=== PATIENT | male | born 1935 | race Caucasian/White ===

== ENCOUNTER 2020-01-20 20:22 | Outpatient (REF) | payer MEDICARE, SELFPAY ==
[2020-01-20 19:12] LABS: HCT 37.9 % (40.0-50.0); HGB 12.2 g/dL (13.5-17.5); MCH 30.9 pg (27.0-33.0); MCHC 32.2 % (32.0-36.0); MCV 95.9 fL (80-95); MPV 10.1 fL (8.0-11.0); Platelet Count 226 10^3/uL (130-400); RBC 3.95 10^6/uL (4.36-5.78); RDW 12.8 % (11.8-14.1); RDW-SD 45.1 fL; WBC 7.77 10^3/uL (4.4-10.8)
[2020-01-20 19:31] LABS: ALT 27 U/L (16-63); Anion Gap 7.5 mmol/L (3-11); BUN 30 mg/dL (7-18); CO2 27.5 mmol/L (21.0-32.0); CREATININE 1.35 mg/dL (0.70-1.30); Calcium 8.8 mg/dL (8.5-10.1); Chloride 103 mmol/L (98-107); Estimated GFR 50.47 (mL/min/1.73m2); Glucose 100 mg/dL (74-106); Potassium 5.1 mmol/L (3.5-5.1); Sodium 138 mmol/L (136-145)
[2020-01-20 20:34] LABS: LDL CHOLESTEROL 57 mg/dL (<100)
== END 2020-01-20 20:42 ==
LOC: NCHCN 20:22
PROVIDERS: PCP Internal Medicine; Visit Provider Internal Medicine
DX: I48.0 Paroxysmal atrial fibrillation (principal); Z98.61 Coronary angioplasty status
CPT/HCPCS: 80048; 83721; 85027; 84460

== ENCOUNTER 2020-06-12 11:27 | Outpatient (REF) | payer MEDICARE, SELFPAY ==
[2020-06-14 11:08] LABS: COVID-19 RT-PCR Result Positive (Negative)
== END 2020-06-12 11:47 ==
LOC: NCHCN 11:27
PROVIDERS: PCP Internal Medicine; Visit Provider Internal Medicine
DX: Z20.828 Contact with and (suspected) exposure to other viral communicable diseases (principal); R05 Cough
CPT/HCPCS: U0003

== ENCOUNTER 2021-01-26 12:25 | Outpatient (REF) | payer MEDICARE, SELFPAY ==
[2021-01-26 19:39] LABS: HCT 38.7 % (40.0-50.0); HGB 12.4 g/dL (13.5-17.5); MCH 30.7 pg (27.0-33.0); MCV 95.8 fL (80-95); Platelet Count 246 10^3/uL (130-400); RBC 4.04 10^6/uL (4.36-5.78); RDW 12.7 % (11.8-14.1); RDW-SD 45.1 fL; WBC 10.04 10^3/uL (4.4-10.8)
[2021-01-26 19:54] LABS: ALT 48 U/L (16-63); AST 38 U/L (15-37); Albumin 3.2 g/dL (3.4-5.0); Alkaline Phosphatase 117 U/L (46-116); Anion Gap 5.4 mmol/L (3-11); BUN 25 mg/dL (7-18); Bilirubin, Total 0.6 mg/dL (0.2-1.0); CO2 28.6 mmol/L (21.0-32.0); CREATININE 1.4 mg/dL (0.70-1.30); Calcium 8.5 mg/dL (8.5-10.1); Chloride 105 mmol/L (98-107); Estimated GFR 48.28 (mL/min/1.73m2); Glucose 98 mg/dL (74-106); Potassium 5.1 mmol/L (3.5-5.1); Sodium 139 mmol/L (136-145); Total Protein 6.7 g/dL (6.4-8.2)
== END 2021-01-26 12:26 | disposition home or self-care (01) ==
LOC: NCHCN 12:25
PROVIDERS: PCP Internal Medicine; Visit Provider Internal Medicine
DX: I48.0 Paroxysmal atrial fibrillation (principal)
CPT/HCPCS: 80053; 85027

== ENCOUNTER 2021-03-01 19:12 | Outpatient (REF) | payer MEDICARE, SELFPAY ==
[2021-03-13 14:48] LABS: Misc Referral (MAYO) See Comments
== END 2021-03-01 19:13 | disposition home or self-care (01) ==
LOC: NCHCN 19:12
PROVIDERS: PCP Internal Medicine; Visit Provider Internal Medicine
DX: N18.32 Chronic kidney disease, stage 3b (principal)
CPT/HCPCS: 81050

== ENCOUNTER 2021-12-05 18:00 | Outpatient (REF) | payer MEDICARE, SELFPAY ==
[2021-12-05 20:10] LABS: ALT 392 U/L (16-63); AST 432 U/L (15-37); Albumin 1.9 g/dL (3.4-5.0); Alkaline Phosphatase 110 U/L (46-116); Bilirubin, Direct 0.3 mg/dL (0.0-0.2); Total Protein 6.4 g/dL (6.4-8.2)
== END 2021-12-05 18:01 | disposition home or self-care (01) ==
LOC: NCHCN 18:00
PROVIDERS: PCP Internal Medicine; Visit Provider Nurse Practitioner Family
DX: R94.5 Abnormal results of liver function studies (principal)
CPT/HCPCS: 80076

== ENCOUNTER 2021-12-26 15:45 | Outpatient (REF) | payer MEDICARE, SELFPAY ==
[2021-12-26 20:31] LABS: ALT 51 U/L (16-63); AST 32 U/L (15-37); Albumin 2.7 g/dL (3.4-5.0); Alkaline Phosphatase 137 U/L (46-116); Anion Gap 9.7 mmol/L (3-11); BUN 11 mg/dL (7-18); Bilirubin, Total 0.5 mg/dL (0.2-1.0); CO2 23.3 mmol/L (21.0-32.0); CREATININE 1.4 mg/dL (0.70-1.30); Calcium 8.1 mg/dL (8.5-10.1); Chloride 98 mmol/L (98-107); Estimated GFR 48.16 (mL/min/1.73m2); Glucose 197 mg/dL (74-106); Potassium 4.1 mmol/L (3.5-5.1); Sodium 131 mmol/L (136-145); Total Protein 6.9 g/dL (6.4-8.2)
== END 2021-12-26 15:46 | disposition home or self-care (01) ==
LOC: NCHCN 15:45
PROVIDERS: PCP Internal Medicine; Visit Provider Internal Medicine
DX: R94.5 Abnormal results of liver function studies (principal); I48.0 Paroxysmal atrial fibrillation; J18.9 Pneumonia, unspecified organism; R91.8 Other nonspecific abnormal finding of lung field
CPT/HCPCS: 80053

== ENCOUNTER 2023-03-24 15:45 | Outpatient (REF) | payer MEDICARE, SELFPAY ==
[2023-03-24 19:47] LABS: Abs Immature Grans 0.02 10^3/uL (0.0-0.06); Absolute Basophil Count 0.06 10^3/uL (0.0-0.2); Absolute Eosinophil Count 0.31 10^3/uL (0.0-0.7); Absolute Lymphocyte Count 3.03 10^3/uL (1.2-3.4); Absolute Monocyte Count 0.77 10^3/uL (0.1-0.8); Absolute Neutrophil Count 4.32 10^3/uL (1.2-6.7); Basophils % 0.7; Eosinophils % 3.6; HCT 39.2 % (40.0-50.0); HGB 12.7 g/dL (13.5-17.5); Immature Grans % 0.2; Lymphocytes % 35.6; MCHC 32.4 % (32.0-36.0); MCV 96 fL (80-95); MPV 9.9 fL (8.0-11.0); Neutrophils % 50.9; Platelet Count 243 10^3/uL (130-400); RDW 12.9 % (11.8-14.1); RDW-SD 45.2 fL; WBC 8.51 10^3/uL (4.4-10.8)
[2023-03-24 20:07] LABS: ALT 33 U/L (16-63); AST 34 U/L (15-37); Albumin 3.2 g/dL (3.4-5.0); Alkaline Phosphatase 133 U/L (46-116); Anion Gap 4.8 mmol/L (3-11); BUN 22 mg/dL (7-18); Bilirubin, Total 0.7 mg/dL (0.2-1.0); CO2 28.2 mmol/L (21.0-32.0); CREATININE 1.8 mg/dL (0.70-1.30); Calcium 9.3 mg/dL (8.5-10.1); Chloride 103 mmol/L (98-107); Estimated GFR 36.21 (mL/min/1.73m2); Glucose 125 mg/dL (74-106); Potassium 5.8 mmol/L (3.5-5.1); Sodium 136 mmol/L (136-145); TSH 5.56 uIU/mL (0.36-3.74); Total Protein 7.5 g/dL (6.4-8.2)
== END 2023-03-24 15:46 | disposition home or self-care (01) ==
LOC: NCHCN 15:45
PROVIDERS: PCP Internal Medicine; Visit Provider Internal Medicine
DX: Z79.01 Long term (current) use of anticoagulants (principal); Z51.81 Encounter for therapeutic drug level monitoring; Z79.899 Other long term (current) drug therapy
CPT/HCPCS: 80053; 84443; 85025

== ENCOUNTER 2024-04-15 16:47 | Outpatient (REF) | payer MEDICARE, SELFPAY ==
[2024-04-15 19:59] LABS: TSH (W/Ref FT4) 6.53 uIU/mL (0.36-3.74)
[2024-04-15 20:15] LABS: FREE T4 1.02 ng/dL (0.76-1.46)
== END 2024-04-15 16:48 | disposition home or self-care (01) ==
LOC: NCHCN 16:47
PROVIDERS: PCP Internal Medicine; Visit Provider Internal Medicine
DX: T46.2X5D Adverse effect of other antidysrhythmic drugs, subsequent encounter (principal)
CPT/HCPCS: 84439; 84443

== ENCOUNTER 2024-10-13 13:39 | Outpatient (REF) | payer MEDICARE, SELFPAY ==
[2024-10-13 21:06] LABS: ALT 48 U/L (16-63); AST 47 U/L (15-37); Albumin 3.3 g/dL (3.4-5.0); Alkaline Phosphatase 123 U/L (46-116); BUN 21 mg/dL (7-18); Bilirubin, Total 0.8 mg/dL (0.2-1.0); CREATININE 1.4 mg/dL (0.70-1.30); Calcium 9.3 mg/dL (8.5-10.1); Chloride 101 mmol/L (98-107); Estimated GFR 48.34 (mL/min/1.73m2); Glucose 108 mg/dL (74-106); Sodium 135 mmol/L (136-145); TSH 8.49 uIU/mL (0.36-3.74); Total Protein 7.4 g/dL (6.4-8.2)
== END 2024-10-13 13:40 | disposition home or self-care (01) ==
LOC: NCHCN 13:39
PROVIDERS: PCP Internal Medicine; Visit Provider Internal Medicine
DX: I10 Essential (primary) hypertension (principal)
CPT/HCPCS: 80053; 84443